=== PATIENT | female | born 1965 | race Caucasian/White ===

== ENCOUNTER 2024-03-05 21:20 | Emergency (ER) | payer BC, SELFPAY ==
[2024-03-05 21:21] VITALS: BMI 31.6
[2024-03-05 21:48] VITALS: BP 135/84; PULSE 95; RESP 18; TEMP 36.9; O2SAT 97
--- NOTE | 2024-03-05 21:55 | EDNOTE_ITS ---
Lower Extremity Injury RME/HPI General Chief Complaint: Ankle/Foot Injury Stated Complaint: L FOOT PAIN WHEN GETTING UP OFF FLOOR Time Seen by Provider: 03/05/24 21:29 Source: patient Arrival date/time: 03/05/24 21:20 58-year-old female presents emergency department complaining of left foot/ankle pain after twisting her foot when she was getting up from a sitting position. Patient reports afterwards went on the treadmill and walked for a long time and pain ensued. Mode of arrival: wheelchair Limitations: physical limitation Related Data Previous Rx's ?Medication ?Instructions ?Recorded benzonatate 100 mg capsule 100 mg PO TID #40 caps 03/10/17 (Tessalon Perle) ibuprofen 600 mg tablet 600 mg PO Q6HR PRN PAIN #40 tabs 03/10/17 azithromycin 250 mg tablet See Rx Instructions PO .COMPLEX #6 06/26/17 tabs erythromycin 5 mg/gram (0.5 %) eye 0.5 inch ophthalmic (eye) BID #1 g 06/26/17 ointment azithromycin 250 mg tablet See Rx Instructions PO .COMPLEX #6 02/12/23 (Zithromax Z-Keaton) tabs ibuprofen 600 mg tablet 600 mg PO Q8H PRN pain #20 tabs 03/05/24 Allergies Allergy/AdvReac Type Severity Reaction Status Date / Time codeine Allergy Unknown Rash Verified 02/12/23 04:27 Review of Systems Review of Systems Systems Reviewed: All systems reviewed, normal except as documented Constitutional Constitutional: Reports system reviewed and no additional complaints, except as documented, Denies body ache(s), Denies chills and Denies fever(s) Eyes Eyes: Reports system reviewed and no additional complaints, except as documented and Denies change in vision ENT Ears, Nose, Mouth, and Throat: Reports system reviewed and no additional complaints, except as documented, Denies disequilibrium, Denies dizziness, Denies sore throat and Denies vertigo Cardiovascular Cardiovascular: Reports system reviewed and no additional complaints, except as documented, Denies chest pain and Denies dyspnea Respiratory Respiratory: Reports system reviewed and no additional complaints, except as documented, Denies chest congestion, Denies cough and Denies dyspnea Gastrointestinal Gastrointestinal: Reports system reviewed and no additional complaints, except as documented, Denies abdominal pain, Denies nausea and Denies vomiting Musculoskeletal Musculoskeletal: Reports system reviewed and no additional complaints, except as documented, Reports abnormal gait and Reports arthralgias Integumentary/Breasts Skin/Breast: Reports system reviewed and no additional complaints, except as documented, Denies erythema, Denies rash and Denies wounds Neurologic Neurologic: Reports system reviewed and no additional complaints, except as documented, Reports abnormal gait, Denies disequilibrium, Denies dizziness and Denies vertigo Past Medical History Social History SMOKING STATUS: Never smoker ED Exam General Limitations: Present physical limitation General appearance: Present alert and in no apparent distress Head Head exam: Present atraumatic Eye Eye exam: Present normal appearance, PERRL and EOMI ENT ENT exam: Present normal exam, normal oropharynx and mucous membranes moist Neck Neck exam: Present normal inspection, full ROM and trachea midline Chest Chest inspection: Present normal inspection and symmetric chest wall rise Respiratory Respiratory exam: Present normal lung sounds bilaterally Cardiovascular Cardiovascular exam: Present regular rate, normal rhythm and normal heart sounds Abdominal Exam Abdominal exam: Present soft and normal bowel sounds Extremities Exam Extremities exam: Present normal inspection and full ROM Expanded Lower Extremity Exam Ankle exam: Present tenderness (Left ankle) and swelling (+1 edema); Absent deformity or erythema Foot/toe exam: Present tenderness (Left foot); Absent swelling or erythema Neurovascular/Tendon exam: Present normal capillary refill Gait: observed and limited by pain Back Exam Back exam: Present normal inspection and full ROM Neurological Exam Neurological exam: Present alert, oriented X3 and CN II-XII intact Psychiatric Psychiatric exam: Present normal affect and normal mood Skin Skin exam: Present warm, dry, intact and normal color Course Quality Measures none Orders Category Date Time Status Crutches .NOW Care 03/05/24 22:48 Completed preet wrap [Splint / Immobilizer] STAT Care 03/05/24 22:48 Completed XR ankle comp LT min 3V Stat Exams 03/05/24 21:55 Completed XR foot comp LT min 3V Stat Exams 03/05/24 21:55 Completed Ibuprofen Tab [Motrin Tab] Med 03/05/24 22:25 Discontinued 800 mg PO X1 ONE Ketorolac Inj [Toradol Inj] Med 03/05/24 21:55 Discontinued 30 mg IM X1 ONE Vital Signs Vital signs: Vital Signs Temperature 98.5 F 03/05/24 21:48 Pulse Rate 95 03/05/24 21:48 Respiratory Rate 18 03/05/24 21:48 Blood Pressure 135/84 H 03/05/24 21:48 Pulse Oximetry (%) 97 03/05/24 21:48 Oxygen Delivery Method Room Air 03/05/24 21:48 97% room air within normal limits Extremity Injury, Lower MDM Narrative MDM Narrative:: 58-year-old female presents emergency department complaining of left foot/ankle pain after twisting her foot when she was getting up from a sitting position. Patient reports afterwards went on the treadmill and walked for a long time and pain ensued. X-ray of left foot and ankle were unremarkable. Patient's left ankle and foot is neurovascularly intact. Patient given Preet wrap and crutches for ambulation. Instructed to follow-up with primary care provider and request MRI of ankle if symptoms persist. No obvious signs of cellulitis or concern for infection. Patient data External records reviewed:: [facility] previous records Clinical information provided by:: patient Social determinants that could affect healthcare access:: none Patient has the following chronic illnesses:: See chart How is presenting disease/condition affected by chronic disease/condition?: uneffected by Evaluation data The following diagnostics were reviewed and interpreted by me:: radiology exam(s) Lab and/or radiology exams considered but not ordered:: Ordered Interpretation Summary: Interpreted by me Medications / Prescriptions Medications or Prescriptions considered but not ordered:: Ordered Medication administrations:: Medication Administration History Discontinued Medications Ibuprofen (Ibuprofen Tab 400 Mg Tablet) 800 mg PO X1 ONE Stop: 03/05/24 22:26 Last Admin: 03/05/24 22:27 Dose: 800 mg Documented By: DAYAMI Ketorolac Tromethamine (Ketorolac Inj 60 Mg/2 Ml Vial) 30 mg IM X1 ONE Stop: 03/05/24 21:56 Last Admin: 03/05/24 22:26 Dose: Not Given Documented By: DAYAMI Non-Admin Reason: Patient Refused Given Consultations Consultation(s) initiated? (list below): No Diagnosis Extremity Injury, Lower Differential Diagnosis: ankle sprain and strain and ankle fracture Most likely diagnosis given after review of the tests above:: Ankle sprain Admission Indicated Admission indicated?: not indicated Admission Request Was there a request for admission?: No Disposition Plan Disposition Plan: Discharge Discharge Attestation Discharge Attestation: The patient and all family members were given an opportunity to ask questions and understood the discharge instructions. Discharge instructions specifically effects, indications for sooner follow up or return to the emergency department, and the expected course of current diagnosis. Patient condition: Stable Discharge Plan Plan Patient Disposition: HOME (Self Care) Disposition Comment: Stable Prescriptions/Referrals Prescriptions/Med Rec: New ibuprofen 600 mg tablet 600 mg PO Q8H PRN (Reason: pain) Qty: 20 0RF No Action benzonatate [Tessalon Perle] 100 MG capsule 100 mg PO TID Qty: 40 0RF ibuprofen 600 MG tablet 600 mg PO Q6HR PRN (Reason: PAIN) Qty: 40 0RF azithromycin 250 mg tablet See Rx Instructions .ROUTE .COMPLEX Qty: 6 0RF Rx Instructions: take 2 tab (500 mg) today (day 1), then 1 tab (250 mg) for 4 days (days 2-5) erythromycin 5 mg/gram (0.5 %) ointment 0.5 inch OPHTHALMIC BID Qty: 1 0RF azithromycin [Zithromax Z-Keaton] 250 mg tablet See Rx Instructions PO .COMPLEX Qty: 6 0RF Rx Instructions: For 250 mg dose pack: take 500 mg today (day 1), then 250 mg for 4 days (days 2-5) Problem List Clinical Impression: Ankle sprain Patient/Caregiver Discharge Instructions Discharge Activity: activity as tolerated Education Materials: ED PREET Wrap, ED Ankle Sprain (Adult) Additional Instructions: Take ibuprofen or Tylenol as needed for pain. Rest, ice, compress, and elevate. Follow-up with primary care provider in 2 to 3 days. Return to emergency department for any worsening symptoms or as needed. Print Language: Swazi Stand Alone Forms: Vaishali Award Info., Patient Portal Info Letter COURTNEY/TERESA Supervising Physician COURTNEY/TERESA Supervising Physician: Dr. Veloz
--- NOTE | 2024-03-05 21:55 | XR_ITS ---
Examination: Foot, left, 3 views Technique: AP, oblique, lateral views foot, 3 views Date and time of exam: March 05, 2024 10:00 PM Indications: Injury to the foot today, foot pain Findings: No acute fracture No dislocation No foreign body Impression: No acute fracture
--- NOTE | 2024-03-05 21:55 | XR_ITS ---
EXAMINATION: Ankle, left 3 views . Technique: Ankle AP, oblique, lateral 3 views Date and time of exam: March 05, 2024 1002 hrs. Indications: Injury to the ankle today, ankle pain. Findings: No acute fracture No ankle dislocation No foreign body Impression: No acute fracture
[2024-03-05] MEDS: IBUPROFEN TAB 400 MG TABLET 800 MG PO (22:27)
== END 2024-03-05 23:12 | disposition home or self-care (01) ==
LOC: SERX 23:07
PROVIDERS: Emergency Provider Emergency Medicine; PCP Registered Nurse General Practice
DX: S93.402A Sprain of unspecified ligament of left ankle, initial encounter (principal); S99.922A Unspecified injury of left foot, initial encounter; X50.1XXA Overexertion from prolonged static or awkward postures, initial encounter
CPT/HCPCS: 73610; 73630; 99283; A9270

== ENCOUNTER → 2024-04-24 | Outpatient (CLI) | payer BC, SELFPAY ==
--- NOTE | 2024-04-24 08:52 | XR_ITS ---
Examination: Knee, right , 3 views Technique: Knee AP, lateral, oblique 3 views Date and time of exam: April 24, 2024 0857 hrs. Indications: Patient fell one year ago and again one month ago with injury to the knee, knee pain. Findings: Moderate osteopenia Moderate to advanced narrowing medial joint space Moderate knee effusion No fracture Impression: No fracture Moderate knee effusion, seen with internal derangement of the knee
--- NOTE | 2024-04-24 08:52 | XR_ITS ---
Examination: Lumbar spine, 5 views Technique: Lumbar spine AP, lateral, coned lateral lower lumbar spine, bilateral obliques 5 views Exam date and time: April 24, 2024 at 0857 hrs. Indications: Patient fell one year ago indicated one month ago with injury to lower back, lower back pain. Findings: Lower lumbar levoscoliosis 12 degrees Moderate osteopenia Moderate diffuse facet arthropathy No acute lumbar fracture Mild to moderate diffuse lumbar disc narrowing Impression: No acute lumbar fracture
--- NOTE | 2024-04-24 09:15 | XR_ITS ---
Examination: Duplex scan of the lower extremity, unilateral right complete Date and time of exam: April 24, 2024 0914 hrs. Indications: Right neck swelling and pain beginning one month ago Technique: Duplex scan of the extremity veins using B-mode/grayscale imaging and Doppler spectral analysis and color flow Attention is directed to internal echogenicity, compression and augmentation involving these veins, color flow assessment, spectral analysis Findings: Major deep venous structures in the extremity demonstrate normal course and caliber. There is no evidence of deep vein thrombosis. Normal color flow and spectral analysis Impression: Negative for DVT..
== END | disposition home or self-care (01) ==
PROVIDERS: PCP Nurse Practitioner Family; Referring Provider Nurse Practitioner Family; Visit Provider Nurse Practitioner Family
DX: M25.461 Effusion, right knee (principal); M23.91 Unspecified internal derangement of right knee; M54.2 Cervicalgia; M54.50 Low back pain, unspecified; S39.92XS Unspecified injury of lower back, sequela; W19.XXXS Unspecified fall, sequela
CPT/HCPCS: 72110; 73562; 93971

== ENCOUNTER → 2024-07-17 | Outpatient (CLI) | payer BC, SELFPAY ==
--- NOTE | 2024-07-17 | XR_ITS ---
Examination: Bone densitometry Date and time of exam:July 17, 2024 at 1354 hours INDICATIONS: Thyroid cancer diagnosis, menopause age 57 Technique: Lumbar spine and hip total bone mineralization values of an calculated. Peak reference and age match control results have been displayed. Findings: Lumbar spine total bone mineralization is1.104 gm/cm2. This is 0.5 standard deviations above peak reference. This is 1.8 standard deviations above age-matched controls. Hip total bone mineralization is 1.118 gm/cm2 This is 1.4 standard deviations above peak reference. This is 2.3 standard deviations above age-matched controls Impression: There is normal mineralization based on lumbar spine measurements. There is normal mineralization based on hip measurements
== END | disposition home or self-care (01) ==
LOC: CDIM 13:13
PROVIDERS: PCP Registered Nurse General Practice; Referring Provider Nurse Practitioner Family; Visit Provider Nurse Practitioner Family
DX: M85.80 Other specified disorders of bone density and structure, unspecified site (principal)
CPT/HCPCS: 77080

== ENCOUNTER → 2024-07-17 | Outpatient (CLI) | payer BC, SELFPAY ==
--- NOTE | 2024-07-17 | XR_ITS ---
Examination: AP knees single view TECHNIQUE: Standing AP bilateral knees single view Date and time: July 17, 2024 0746 hours INDICATIONS: Bilateral knee pain after falling May 31, 2024 FINDINGS: Advanced narrowing medial joint space right knee Moderate narrowing medial joint space left knee No fracture or dislocation IMPRESSION: No fracture or dislocation
[2024-07-17 09:14] LABS: Alanine Aminotransferase 30 U/L (10-49); Albumin, Serum 4.7 gm/dL (3.5-5.0); Alkaline Phosphatase 96 U/L (46-116); Anion Gap 12 (7-16); Aspartate Amino Transferase 25 U/L (0-34); BUN/Creatinine Ratio 25 Ratio (12-20); Bilirubin,Total 0.6 mg/dL (0.3-1.2); Blood Urea Nitrogen 15 mg/dL (9-23); Calcium 9.2 mg/dL (8.3-10.6); Calcium (Corrected) 9.2 mg/dL (8.5-10.1); Carbon Dioxide 25.9 mMol/L (20.0-31.0); Chloride 106 mMol/L (98-107); Creatinine (Component) 0.6 mg/dL (0.6-1.3); Globulin 2.3 gm/dL (2.3-3.5); Glucose 101 mg/dL (74-106); Osmolality,Calculated 287 (275-295); Sodium 144 mMol/L (136-145); eGFR > 60 See Note
[2024-07-21 06:58] LABS: Vitamin D, 25-OH, D2 <4 ng/mL; Vitamin D, 25-OH, D3 70 ng/mL; Vitamin D, 25-OH, Total 70 ng/mL (30-100)
== END | disposition home or self-care (01) ==
PROVIDERS: PCP Registered Nurse General Practice; Referring Provider Nurse Practitioner Family; Visit Provider Nurse Practitioner Family
DX: M25.562 Pain in left knee (principal); M25.561 Pain in right knee; M85.80 Other specified disorders of bone density and structure, unspecified site
CPT/HCPCS: 36415; 73565; 80053; 82306

== ENCOUNTER → 2024-10-17 | Outpatient (CLI) | payer BC, SELFPAY ==
[2024-10-17 08:52] LABS: Collection Type, Urine Clean Catch
[2024-10-17 09:21] LABS: Basophils # (Auto) 0.0 Thou/mm3 (0.0-0.2); Basophils % (Auto) 1 % (0-2.5); Eosinophils # (Auto) 0.1 Thou/mm3 (0.0-0.5); Eosinophils % (Auto) 2 % (0-10); Hematocrit 43.3 % (36.0-46.0); Hemoglobin 14.1 g/dL (12.0-16.0); Immature Granulocytes Auto 0.02 Thou/mm3 (0.00-0.00); Lymphocytes # (Auto) 2.5 Thou/mm3 (1.0-4.8); Lymphocytes % (Auto) 43 % (10-50); Mean Corpuscular HGB Conc 32.6 g/dl (31.0-37.0); Mean Corpuscular Hemoglobin 28.2 pg (25.0-35.0); Mean Corpuscular Volume 87 fL (80-100); Monocytes # (Auto) 0.4 Thou/mm3 (0.0-0.8); Monocytes % (Auto) 7 % (0-12); Neutrophils # (Auto) 2.8 Thou/mm3 (1.8-7.7); Neutrophils % (Auto) 48 % (37-80); Nucleated Red Blood Cell # 0.00 Thou/mm3 (0.00-0.00); Nucleated Red Blood Cell % 0 /100 WBC (0); Platelet Count 309 Thou/mm3 (140-440); RDW Standard Deviation 46.5 fL (36.4-46.3); Red Blood Count 5.00 Miln/mm3 (4.00-5.20); White Blood Count 5.9 Thou/mm3 (3.6-11.0)
[2024-10-17 09:33] LABS: Bilirubin,Urine Negative (Negative); Blood,Urine Negative (Negative); Clarity,Urine Clear (Clear/Hazy); Color,Urine Colorless (Lt Yel-Yel); Glucose, Urine Negative (Negative); Ketones,Urine Negative (Negative); Leukocyte Esterase,Urine Negative (Negative); Nitrite,Urine Negative (Negative); PH,Urine 6.0 (5.0-7.0); Protein,Urine Negative (Neg - Trace); RBC,Urine 1 /hpf (0-3); Specific Gravity,Urine 1.006 (1.001-1.035); Squamous Epithelial Cell,Urine 1 /hpf (0-5); Urobilinogen,Urine Negative mg/dL (0.0-1.0); WBC,Urine 1 /hpf (0-5)
[2024-10-17 09:54] LABS: Alanine Aminotransferase 15 U/L (10-49); Albumin, Serum 4.7 gm/dL (3.5-5.0); Albumin/Globulin Ratio 2.4 (1.2-2.2); Alkaline Phosphatase 93 U/L (46-116); Anion Gap 9 (7-16); Aspartate Amino Transferase 18 U/L (0-34); BUN/Creatinine Ratio 27 Ratio (12-20); Bilirubin,Total 0.4 mg/dL (0.3-1.2); Blood Urea Nitrogen 16 mg/dL (9-23); Calcium 10.0 mg/dL (8.3-10.6); Calcium (Corrected) 10.0 mg/dL (8.5-10.1); Carbon Dioxide 25.6 mMol/L (20.0-31.0); Cardiac Risk Estimate 3.3 RATIO (3.7-5.6); Chloride 108 mMol/L (98-107); Cholesterol 222 mg/dL (132-200); Creatinine (Component) 0.6 mg/dL (0.6-1.3); Free T3 3.4 pg/mL (2.3-4.2); Free T4 (Free Thyroxine) 1.78 ng/dL (0.89-1.76); Globulin 2.0 gm/dL (2.3-3.5); Glucose 93 mg/dL (74-106); HDL Cholesterol 68 mg/dL (40-60); LDL Cholesterol,Calculated 119 mg/dL (0-130); Osmolality,Calculated 286 (275-295); Potassium 4.0 mMol/L (3.4-5.1); Sodium 143 mMol/L (136-145); Thyroid Stimulating Hormone 0.02 uIU/mL (0.55-4.78); Total Protein 6.7 gm/dL (5.7-8.2); Triglycerides 176 mg/dL (30-150); eGFR > 60 See Note
[2024-10-17 10:00] LABS: CA 125 7.0 U/mL (<30.2); Vitamin B12 415 pg/mL (211-911); Vitamin D 25 Hydroxy Total 59.6 ng/mL (7.3-40.2)
[2024-11-06 08:38] LABS: DHEA Sulfate* 96 mcg/dL (8-188); Estradiol, Ultrasensitive* 10 pg/mL; Progesterone,LC/MS* <0.1 ng/mL; T3, Reverse, LC/MS/MS* 28 ng/dL (8-25); Testosterone, Free,Dialysis 2.5 pg/mL (0.1-6.4); Testosterone, Total, Dialysis 20 ng/dL (2-45); Thyroid Peroxidase Antibodies* <1 IU/mL (<9)
== END | disposition home or self-care (01) ==
LOC: COPL 08:18
PROVIDERS: PCP Registered Nurse General Practice; Referring Provider Registered Nurse General Practice; Visit Provider Registered Nurse General Practice
DX: Z00.00 Encounter for general adult medical examination without abnormal findings (principal); D51.9 Vitamin B12 deficiency anemia, unspecified; D72.819 Decreased white blood cell count, unspecified; E03.9 Hypothyroidism, unspecified; E78.2 Mixed hyperlipidemia; N95.1 Menopausal and female climacteric states; R82.5 Elevated urine levels of drugs, medicaments and biological substances
CPT/HCPCS: 36415; 80053; 80061; 81001; 82306; 82607; 82627; 82670; 84144; 84402; 84403; 84439; 84443; 84481; 84482; 85025; 86304; 86376